=== PATIENT | male | born 1975 | race Caucasian/White ===

== ENCOUNTER 2022-10-07 11:29 | Inpatient (IN) | payer BC, OTHER ==
[~2022-10-07] VITALS: Ht 170.2 cm; Wt 107.0 kg
[2022-10-07 12:28] LABS: Basophils # (auto) 0 10 ^3/uL (0-0.2); Basophils % (auto) 0.4 % (0.0-2.0); Eosinophils # (auto) 0.1 10 ^3/uL (0-0.8); Eosinophils % (auto) 0.6 % (0.0-7.0); Hemoglobin 17.9 g/dL (13.5-17.5); Lymphocytes # (auto) 1.6 10 ^3/uL (0.4-5.4); Lymphocytes % (auto) 15.4 % (10.0-50.0); Mean Corpuscular Hemoglobin 34.5 pg (28.0-32.0); Mean Corpuscular Hgb Conc. 35.2 g/dL (32.0-36.0); Mean Corpuscular Volume 98.1 fL (80.0-100.0); Monocytes # (auto) 1.2 10 ^3/uL (0-1.3); Monocytes % (auto) 11.8 % (0.0-12.0); Neutrophils # (auto) 7.3 10 ^3/uL (1.6-8.6); Neutrophils % (auto) 71.8 % (37.0-80.0); Nucleated Red Blood Cells % 0.1 %; White Blood Cell 10.1 10^3/uL (4.4-10.8)
[2022-10-07 12:44] LABS: Albumin 3.8 g/dL (3.4-5.0); BUN/Creatinine Ratio 12.7 (10.0-20.0); Calcium 10.5 mg/dL (8.5-10.1); Potassium 3.7 mmol/L (3.5-5.1)
[2022-10-07 12:47] LABS: Total Protein 8.4 g/dL (6.4-8.2)
[2022-10-07 12:53] LABS: Urine Bacteria NONE SEEN /hpf (None Seen); Urine Blood Negative /uL (Negative); Urine Specific Gravity 1.014 (1.001-1.035); Urine WBC 1 /hpf (0 - 3)
[2022-10-07] MEDS ORDERED: HYDROcodone-ACET 5/325MG TAB PO ONE (14:15)
[2022-10-07] MEDS ORDERED: KETOROLAC TROMETH 30 MG/ML 1ML VIAL IV ONE (14:15)
[2022-10-07] MEDS ORDERED: predniSONE 20 MG TAB PO ONE (14:15)
[2022-10-07] MEDS ORDERED: LACTATED RINGER'S 1,000 ML IV ONE (16:15)
[2022-10-07] MEDS ORDERED: NITROGLYCERIN 0.4 MG SL TAB SL PRN (17:30)
[2022-10-07] MEDS ORDERED: ONDANSETRON HCL 4 MG/2 ML VIAL IV PRN (17:30)
[2022-10-07] MEDS ORDERED: MORPHINE SULFATE INJ 2 MG/ml SYRG IV PRN (17:30)
[2022-10-07 18:50] LABS: INR 1.03 (0.9-1.15); Partial Thromboplastin Time 36.3 sec (24.6-33.4)
[2022-10-07] MEDS: cefTRIAXone 1GM/50ML D5W 50 ML IV SCH (22:00)
[2022-10-07] MEDS: LACTATED RINGER'S 1,000 ML IV SCH (22:00)
[2022-10-07] MEDS: PANTOPRAZOLE 40 MG/10 ML VIAL INJ IV SCH (22:00)
[2022-10-08] MEDS: metroNIDAZOLE 500MG/100ML 100 ML IV SCH ×4 (00:12→22:34)
[2022-10-08] MEDS ORDERED: ACETAMINOPHEN 325 MG TAB PO ONE (00:45)
[2022-10-08] MEDS: LACTATED RINGER'S 1,000 ML IV SCH ×2 (01:31→09:30)
[2022-10-08] MEDS: MORPHINE SULFATE INJ 2 MG/ml SYRG IV PRN ×3 (02:55→20:19)
[2022-10-08 06:25] LABS: Basophils # (auto) 0 10 ^3/uL (0-0.2); Hemoglobin 16.9 g/dL (13.5-17.5); Monocytes # (auto) 1.3 10 ^3/uL (0-1.3)
[2022-10-08 06:28] LABS: Basophils % (auto) 0.3 % (0.0-2.0); Eosinophils # (auto) 0.1 10 ^3/uL (0-0.8); Eosinophils % (auto) 0.8 % (0.0-7.0); Hematocrit 47.5 % (41.0-53.0); Lymphocytes # (auto) 1.4 10 ^3/uL (0.4-5.4); Lymphocytes % (auto) 19.5 % (10.0-50.0); Mean Corpuscular Hemoglobin 34.6 pg (28.0-32.0); Mean Corpuscular Hgb Conc. 35.5 g/dL (32.0-36.0); Mean Corpuscular Volume 97.4 fL (80.0-100.0); Neutrophils # (auto) 4.3 10 ^3/uL (1.6-8.6); Neutrophils % (auto) 61.2 % (37.0-80.0); Nucleated Red Blood Cells % 0.1 %; Red Blood Cells 4.88 10^6/uL (4.5-5.90)
[2022-10-08 06:51] LABS: Potassium 3.8 mmol/L (3.5-5.1)
[2022-10-08 07:10] LABS: Albumin 3.5 g/dL (3.4-5.0); BUN/Creatinine Ratio 15.3 (10.0-20.0); Bilirubin, Total 0.7 mg/dL (0.2-1.0); Calcium 9.9 mg/dL (8.5-10.1); Total Protein 7.5 g/dL (6.4-8.2)
[2022-10-08 07:29] LABS: Monocytes % (auto) 18.2 % (0.0-12.0)
[2022-10-08] MEDS: PANTOPRAZOLE 40 MG/10 ML VIAL INJ IV SCH (09:49)
[2022-10-08] MEDS: cefTRIAXone 1GM/50ML D5W 50 ML IV SCH (09:49)
[2022-10-08] MEDS ORDERED: levoFLOXacin 500MG 100 ML IV SCH (10:00)
[2022-10-08] MEDS ORDERED: methylPREDNISolone SOD SUCC 40 MG/ML VL IV SCH (10:00)
[2022-10-08 11:40] VITALS: BP 117/73
[2022-10-08 12:30] VITALS: BP 117/73
[2022-10-08] MEDS ORDERED: GASTROGRAFIN 120 ML SOL ONE (15:23)
[2022-10-08 17:30] VITALS: BP 120/80
[2022-10-08 22:00] VITALS: BP 127/82
[2022-10-09 05:00] VITALS: BP 121/71
[2022-10-09 06:07] LABS: Mean Corpuscular Hemoglobin 34.3 pg (28.0-32.0); White Blood Cell 6.5 10^3/uL (4.4-10.8)
[2022-10-09 06:09] LABS: Hematocrit 47.6 % (41.0-53.0); Hemoglobin 16.6 g/dL (13.5-17.5); Mean Corpuscular Hgb Conc. 34.8 g/dL (32.0-36.0); Mean Corpuscular Volume 98.6 fL (80.0-100.0); Red Blood Cells 4.83 10^6/uL (4.5-5.90); Red Cell Distribution Width 13.2 % (11.8-14.3)
[2022-10-09] MEDS: metroNIDAZOLE 500MG/100ML 100 ML IV SCH ×3 (06:10→21:39)
[2022-10-09 06:22] LABS: Albumin 3.1 g/dL (3.4-5.0); BUN/Creatinine Ratio 16.8 (10.0-20.0); Calcium 9.3 mg/dL (8.5-10.1); Magnesium 2.3 mg/dL (1.6-2.6); Potassium 3.3 mmol/L (3.5-5.1)
[2022-10-09 06:25] LABS: Bilirubin, Total 0.4 mg/dL (0.2-1.0); Total Protein 7.5 g/dL (6.4-8.2)
[2022-10-09 06:31] LABS: Basophils % (manual) 0 (0.0-2.0); Blast Cells 0; Metamyelocytes % 0; Myelocytes % 0; Promyelocytes % 0
[2022-10-09] MEDS ORDERED: POTASSIUM CHLORIDE 40 MEQ, LIDOCAINE 1% (LOCAL ANESTH.) 4 ML in SODIUM CHL 0.9% 250 ML IV ONE (07:45)
[2022-10-09 08:51] LABS: Band Neutrophils % (manual) 2; Eosinophils % (manual) 1 (0-7); Lymphocytes % (manual) 21 (10.0-50.0); Monocytes % (manual) 16 (0-12); Reactive Lymphocytes 1
[2022-10-09 09:00] VITALS: BP 106/76
[2022-10-09] MEDS: cefTRIAXone 1GM/50ML D5W 50 ML IV SCH (09:59)
[2022-10-09] MEDS: PANTOPRAZOLE 40 MG/10 ML VIAL INJ IV SCH (10:00)
[2022-10-09 13:00] VITALS: BP 120/77
[2022-10-09 16:41] VITALS: BP 110/77
[2022-10-09 21:49] VITALS: BP 135/72
[2022-10-09 21:51] VITALS: BP 110/65
[2022-10-10 05:22] VITALS: BP 99/62
[2022-10-10] MEDS: metroNIDAZOLE 500MG/100ML 100 ML IV SCH ×2 (05:30→15:02)
[2022-10-10 08:30] VITALS: BP 115/72
[2022-10-10] MEDS: cefTRIAXone 1GM/50ML D5W 50 ML IV SCH (09:54)
[2022-10-10] MEDS: PANTOPRAZOLE 40 MG/10 ML VIAL INJ IV SCH (09:59)
[2022-10-10 13:00] VITALS: BP 113/73
[2022-10-10 13:18] LABS: Basophils # (auto) 0.1 10 ^3/uL (0-0.2); Basophils % (auto) 0.9 % (0.0-2.0); Eosinophils # (auto) 0.1 10 ^3/uL (0-0.8); Eosinophils % (auto) 0.8 % (0.0-7.0); Hemoglobin 15.2 g/dL (13.5-17.5); Lymphocytes # (auto) 1.6 10 ^3/uL (0.4-5.4); Lymphocytes % (auto) 17.2 % (10.0-50.0); Mean Corpuscular Hemoglobin 33.5 pg (28.0-32.0); Mean Corpuscular Hgb Conc. 34.5 g/dL (32.0-36.0); Mean Corpuscular Volume 97.2 fL (80.0-100.0); Monocytes # (auto) 0.9 10 ^3/uL (0-1.3); Monocytes % (auto) 9.9 % (0.0-12.0); Neutrophils # (auto) 6.5 10 ^3/uL (1.6-8.6); Neutrophils % (auto) 71.2 % (37.0-80.0); Nucleated Red Blood Cells % 0.1 %; Red Blood Cells 4.52 10^6/uL (4.5-5.90); Red Cell Distribution Width 13.2 % (11.8-14.3); White Blood Cell 9.1 10^3/uL (4.4-10.8)
[2022-10-10 13:19] LABS: Potassium 3.4 mmol/L (3.5-5.1)
[2022-10-10] MEDS ORDERED: AUG875T PO (13:22)
[2022-10-10] MEDS ORDERED: METR500T PO (13:22)
[2022-10-10 13:26] LABS: Albumin 3.1 g/dL (3.4-5.0); BUN/Creatinine Ratio 13.8 (10.0-20.0); Bilirubin, Total 0.2 mg/dL (0.2-1.0); Calcium 8.8 mg/dL (8.5-10.1); Total Protein 6.5 g/dL (6.4-8.2)
[2022-10-10] MEDS ORDERED: CHOL20007 OR (15:07)
[2022-10-10] MEDS ORDERED: POTASSIUM CHL 20 Meq TABLET PO ONE (15:15)
== END 2022-10-10 17:34 | disposition home or self-care (01) | DRG 389 ==
LOC: ER 11:29 → TELE 18:01 → TELE-WESTW 10-08 11:40
PROVIDERS: ADMIT Nurse Practitioner Family; ATTEND Internal Medicine
PROC: 0D9670Z Drainage of Stomach with Drainage Device, Via Natural or Artificial Opening (ICD-10-PCS; principal; 2022-10-07)
DX: K56.609 Unspecified intestinal obstruction, unspecified as to partial versus complete obstruction (principal); A09 Infectious gastroenteritis and colitis, unspecified; K51.90 Ulcerative colitis, unspecified, without complications; E66.9 Obesity, unspecified; E55.9 Vitamin D deficiency, unspecified; K80.20 Calculus of gallbladder without cholecystitis without obstruction; E87.6 Hypokalemia; Z80.0 Family history of malignant neoplasm of digestive organs; Z68.36 Body mass index [BMI] 36.0-36.9, adult; Z80.8 Family history of malignant neoplasm of other organs or systems; Z83.3 Family history of diabetes mellitus; Z20.822 Contact with and (suspected) exposure to COVID-19
CPT/HCPCS: 36415; 74018; 74177; 74250; 80053; 81001; 82306; 83036; 83690; 83735; 84443; 85007; 85025; 85027; 85610; 85730; 87081; 87426; 96361; 96374; C9113; G0378; J0696; J1885; J2001; J2405; J3490

== ENCOUNTER → 2022-10-17 | Outpatient (CLI) | payer BC ==
[~2022-10-17] MED LIST: AUG875T PO; CHOL20007 OR; METR500T PO
[2022-10-17 11:01] LABS: Basophils # (auto) 0.1 10 ^3/uL (0-0.2); Eosinophils # (auto) 0.2 10 ^3/uL (0-0.8); Eosinophils % (auto) 1.3 % (0.0-7.0); Hematocrit 45.5 % (41.0-53.0); Hemoglobin 15.5 g/dL (13.5-17.5); Lymphocytes # (auto) 1.8 10 ^3/uL (0.4-5.4); Lymphocytes % (auto) 15.3 % (10.0-50.0); Mean Corpuscular Hemoglobin 33.5 pg (28.0-32.0); Mean Corpuscular Hgb Conc. 34.1 g/dL (32.0-36.0); Mean Corpuscular Volume 98.2 fL (80.0-100.0); Monocytes # (auto) 0.8 10 ^3/uL (0-1.3); Monocytes % (auto) 6.9 % (0.0-12.0); Neutrophils % (auto) 75.5 % (37.0-80.0); Red Blood Cells 4.63 10^6/uL (4.5-5.90)
[2022-10-17 11:45] LABS: Albumin 3.6 g/dL (3.4-5.0); Calcium 8.7 mg/dL (8.5-10.1); Potassium 3.9 mmol/L (3.5-5.1)
[2022-10-17 11:48] LABS: Bilirubin, Total 0.2 mg/dL (0.2-1.0)
== END | disposition home or self-care (01) ==
LOC: LAB 10:42
PROVIDERS: ATTEND Internal Medicine
DX: E78.5 Hyperlipidemia, unspecified (principal); E87.5 Hyperkalemia
CPT/HCPCS: 36415; 80053; 85025

== ENCOUNTER 2022-10-21 16:16 | Inpatient (IN) | payer BC ==
[~2022-10-21] VITALS: Ht 193 cm; Wt 102.1 kg
[2022-10-21 17:35] LABS: Basophils # (auto) 0.1 10 ^3/uL (0-0.2); Basophils % (auto) 0.4 % (0.0-2.0); Eosinophils # (auto) 0 10 ^3/uL (0-0.8); Eosinophils % (auto) 0.1 % (0.0-7.0); Hematocrit 49.1 % (41.0-53.0); Lymphocytes # (auto) 0.5 10 ^3/uL (0.4-5.4); Lymphocytes % (auto) 3.1 % (10.0-50.0); Mean Corpuscular Hemoglobin 33.6 pg (28.0-32.0); Mean Corpuscular Hgb Conc. 34.7 g/dL (32.0-36.0); Mean Corpuscular Volume 96.7 fL (80.0-100.0); Monocytes # (auto) 0.8 10 ^3/uL (0-1.3); Monocytes % (auto) 4.9 % (0.0-12.0); Neutrophils # (auto) 15.7 10 ^3/uL (1.6-8.6); Neutrophils % (auto) 91.5 % (37.0-80.0); Nucleated Red Blood Cells % 0.2 %; Red Blood Cells 5.08 10^6/uL (4.5-5.90); Red Cell Distribution Width 13.5 % (11.8-14.3); White Blood Cell 17.1 10^3/uL (4.4-10.8)
[2022-10-21 18:01] LABS: Calcium 9.5 mg/dL (8.5-10.1); Potassium 4.1 mmol/L (3.5-5.1)
[2022-10-21 18:04] LABS: BUN/Creatinine Ratio 9.7 (10.0-20.0); Bilirubin, Total 1.5 mg/dL (0.2-1.0); Total Protein 7.2 g/dL (6.4-8.2)
[2022-10-21] MEDS ORDERED: ONDANSETRON HCL 4 MG/2 ML VIAL IV ONE (19:00)
[2022-10-21] MEDS ORDERED: fentaNYL CITRATE 100 MCG/2 ML VL IV ONE (19:00)
[2022-10-21] MEDS ORDERED: SODIUM CHLORIDE 0.9% 1,000 ML IV ONE (19:00)
[2022-10-21] MEDS ORDERED: PIPERACILLIN-TAZOB 3.375GM 100 ML IV ONE (19:00)
[2022-10-21 19:42] LABS: Urine Bacteria FEW /hpf (None Seen); Urine Blood Negative /uL (Negative); Urine Hyaline Cast FEW /lpf (0 - 2); Urine Mucus FEW (None Seen); Urine Specific Gravity 1.022 (1.001-1.035); Urine WBC 2 /hpf (0 - 3)
[2022-10-22] MEDS: PIPERACILLIN-TAZOB 3.375GM 100 ML IV SCH ×4 (02:05→22:46)
[2022-10-22 06:04] VITALS: BP 125/80
[2022-10-22] MEDS: SODIUM CHLORIDE 0.9% 1,000 ML IV SCH ×3 (07:17→22:46)
[2022-10-22] MEDS ORDERED: OMEP20TA PO (07:45)
[2022-10-22 08:10] LABS: Basophils # (auto) 0 10 ^3/uL (0-0.2); Basophils % (auto) 0.2 % (0.0-2.0); Eosinophils # (auto) 0 10 ^3/uL (0-0.8); Eosinophils % (auto) 0.3 % (0.0-7.0); Hematocrit 43.2 % (41.0-53.0); Hemoglobin 14.9 g/dL (13.5-17.5); Lymphocytes # (auto) 0.5 10 ^3/uL (0.4-5.4); Lymphocytes % (auto) 8.1 % (10.0-50.0); Mean Corpuscular Hemoglobin 33.7 pg (28.0-32.0); Mean Corpuscular Hgb Conc. 34.4 g/dL (32.0-36.0); Mean Corpuscular Volume 97.7 fL (80.0-100.0); Monocytes # (auto) 0.8 10 ^3/uL (0-1.3); Monocytes % (auto) 11.5 % (0.0-12.0); Neutrophils # (auto) 5.3 10 ^3/uL (1.6-8.6); Neutrophils % (auto) 79.9 % (37.0-80.0); Red Blood Cells 4.42 10^6/uL (4.5-5.90); Red Cell Distribution Width 13.1 % (11.8-14.3); White Blood Cell 6.7 10^3/uL (4.4-10.8)
[2022-10-22 08:31] LABS: Albumin 3.1 g/dL (3.4-5.0); Calcium 8.4 mg/dL (8.5-10.1); Potassium 3.4 mmol/L (3.5-5.1)
[2022-10-22 08:36] LABS: BUN/Creatinine Ratio 12.2 (10.0-20.0); Bilirubin, Total 1.1 mg/dL (0.2-1.0); Total Protein 6.7 g/dL (6.4-8.2)
[2022-10-22] MEDS ORDERED: GASTROGRAFIN 120 ML SOL ONE (08:37)
[2022-10-22 09:00] VITALS: BP 103/48
[2022-10-22] MEDS: PANTOPRAZOLE 40 MG/10 ML VIAL INJ IV SCH (10:25)
[2022-10-22] MEDS: MORPHINE SULFATE INJ 2 MG/ml SYRG IV PRN ×3 (10:30→22:45)
[2022-10-22 13:00] VITALS: BP_SYST 106; BP_SYST 134; BP_DIAS 52; BP_DIAS 87
[2022-10-22] MEDS: ONDANSETRON HCL 4 MG/2 ML VIAL IV PRN (15:38)
[2022-10-22 17:00] VITALS: BP 115/81
[2022-10-22] MEDS ORDERED: POTASSIUM CHL 20 Meq TABLET PO ONE (18:00)
[2022-10-22 22:00] VITALS: BP 102/64
[2022-10-23 05:00] VITALS: BP 117/80
[2022-10-23] MEDS: MORPHINE SULFATE INJ 2 MG/ml SYRG IV PRN (05:35)
[2022-10-23] MEDS: PIPERACILLIN-TAZOB 3.375GM 100 ML IV SCH ×3 (05:36→22:10)
[2022-10-23] MEDS: ONDANSETRON HCL 4 MG/2 ML VIAL IV PRN (05:41)
[2022-10-23 09:14] VITALS: BP 120/69
[2022-10-23] MEDS: PANTOPRAZOLE 40 MG/10 ML VIAL INJ IV SCH (09:40)
[2022-10-23] MEDS: SODIUM CHLORIDE 0.9% 1,000 ML IV SCH ×2 (10:30→14:15)
[2022-10-23] MEDS ORDERED: HYDROmorphone HCL 2 MG/ML VL/or syr IV PRN ×2 (12:15→14:15)
[2022-10-23 13:15] VITALS: BP 107/62
[2022-10-23 17:19] VITALS: BP 107/61
[2022-10-23] MEDS: HYDROmorphone HCL 2 MG/ML VL/or syr IV PRN (18:33)
[2022-10-23 20:00] VITALS: BP 133/79
[2022-10-23 22:00] VITALS: BP 133/79
[2022-10-24] MEDS: HYDROmorphone HCL 2 MG/ML VL/or syr IV PRN ×4 (00:02→19:59)
[2022-10-24] MEDS: ONDANSETRON HCL 4 MG/2 ML VIAL IV PRN ×4 (00:06→19:48)
[2022-10-24 05:00] VITALS: BP 132/80
[2022-10-24 05:50] LABS: BUN/Creatinine Ratio 9.3 (10.0-20.0); Calcium 9.2 mg/dL (8.5-10.1); Magnesium 2.3 mg/dL (1.6-2.6)
[2022-10-24] MEDS: PIPERACILLIN-TAZOB 3.375GM 100 ML IV SCH ×3 (06:27→21:57)
[2022-10-24] MEDS ORDERED: POTASSIUM CHL 20 Meq TABLET PO ONE (07:45)
[2022-10-24 09:00] VITALS: BP 124/77
[2022-10-24] MEDS: PANTOPRAZOLE 40 MG/10 ML VIAL INJ IV SCH (09:59)
[2022-10-24 13:00] VITALS: BP 128/86
[2022-10-24] MEDS: SODIUM CHLORIDE 0.9% 1,000 ML IV SCH (14:39)
[2022-10-24 20:00] VITALS: BP 135/79
[2022-10-24 21:30] VITALS: BP 135/79
[2022-10-25] VITALS (7 sets, daily range): BP systolic 112–135; BP diastolic 63–90
[2022-10-25] MEDS: ONDANSETRON HCL 4 MG/2 ML VIAL IV PRN ×5 (00:40→19:49)
[2022-10-25] MEDS: HYDROmorphone HCL 2 MG/ML VL/or syr IV PRN ×5 (00:42→19:49)
[2022-10-25] MEDS: PIPERACILLIN-TAZOB 3.375GM 100 ML IV SCH ×3 (06:45→21:46)
[2022-10-25 07:03] LABS: BUN/Creatinine Ratio 13.8 (10.0-20.0); Magnesium 2.2 mg/dL (1.6-2.6); Potassium 3.3 mmol/L (3.5-5.1)
[2022-10-25 08:19] LABS: Hematocrit 44.2 % (41.0-53.0); Hemoglobin 15.8 g/dL (13.5-17.5); Mean Corpuscular Hemoglobin 33.9 pg (28.0-32.0); Mean Corpuscular Hgb Conc. 35.7 g/dL (32.0-36.0); Mean Corpuscular Volume 94.9 fL (80.0-100.0); Red Blood Cells 4.66 10^6/uL (4.5-5.90); Red Cell Distribution Width 13.2 % (11.8-14.3); White Blood Cell 6.6 10^3/uL (4.4-10.8)
[2022-10-25 08:24] LABS: Basophils % (manual) 0 (0.0-2.0); Blast Cells 0; Metamyelocytes % 0; Promyelocytes % 0; Reactive Lymphocytes 0
[2022-10-25 08:59] LABS: Band Neutrophils % (manual) 18; Eosinophils % (manual) 2 (0-7); Lymphocytes % (manual) 5 (10.0-50.0); Monocytes % (manual) 29 (0-12); Myelocytes % 1
[2022-10-25] MEDS: PANTOPRAZOLE 40 MG/10 ML VIAL INJ IV SCH (10:44)
[2022-10-25] MEDS: SODIUM CHLORIDE 0.9% 1,000 ML IV SCH ×2 (15:36)
[2022-10-25] MEDS ORDERED: ZOLPIDEM TARTRATE 5 MG TAB PO PRN (16:15)
[2022-10-25] MEDS ORDERED: POTASSIUM CHL 20 Meq TABLET PO ONE (16:30)
[2022-10-26] VITALS (7 sets, daily range): BP systolic 110–130; BP diastolic 54–80
[2022-10-26] MEDS: SODIUM CHLORIDE 0.9% 1,000 ML IV SCH (01:00)
[2022-10-26] MEDS: ONDANSETRON HCL 4 MG/2 ML VIAL IV PRN ×5 (01:59→23:53)
[2022-10-26] MEDS: HYDROmorphone HCL 2 MG/ML VL/or syr IV PRN ×5 (02:01→23:54)
[2022-10-26] MEDS: PIPERACILLIN-TAZOB 3.375GM 100 ML IV SCH ×3 (05:57→22:00)
[2022-10-26] MEDS: PANTOPRAZOLE 40 MG/10 ML VIAL INJ IV SCH (10:20)
[2022-10-26] MEDS ORDERED: METR500T PO (13:23)
[2022-10-26] MEDS ORDERED: LEVO500T31 PO (13:23)
[2022-10-26] MEDS ORDERED: LACTCAP35 OR (13:23)
[2022-10-26] MEDS: SUCRALFATE 1 GM/10 ML ORAL SUSP PO SCH ×2 (16:04→16:49)
[2022-10-27 05:00] VITALS: BP 118/90
[2022-10-27] MEDS: PIPERACILLIN-TAZOB 3.375GM 100 ML IV SCH ×2 (05:31→14:33)
[2022-10-27] MEDS: ONDANSETRON HCL 4 MG/2 ML VIAL IV PRN ×3 (05:32→14:33)
[2022-10-27] MEDS: HYDROmorphone HCL 2 MG/ML VL/or syr IV PRN ×3 (05:33→14:34)
[2022-10-27] MEDS: SUCRALFATE 1 GM/10 ML ORAL SUSP PO SCH (06:05)
[2022-10-27 08:00] VITALS: BP 125/76
[2022-10-27 09:00] VITALS: BP 99/62
[2022-10-27] MEDS: PANTOPRAZOLE 40 MG/10 ML VIAL INJ IV SCH (09:57)
[2022-10-27 12:59] VITALS: BP 129/86
[2022-10-27 14:55] VITALS: BP 125/87
[2022-10-27 15:03] VITALS: BP 132/68
== END 2022-10-27 16:00 | disposition home or self-care (01) | DRG 390 ==
LOC: ER 16:16 → OVERFLOW 21:08 → EAST 10-22 05:53
PROVIDERS: ADMIT Nurse Practitioner; ATTEND Internal Medicine
DX: K56.699 Other intestinal obstruction unspecified as to partial versus complete obstruction (principal); D72.829 Elevated white blood cell count, unspecified; K21.9 Gastro-esophageal reflux disease without esophagitis; K52.9 Noninfective gastroenteritis and colitis, unspecified; Z80.0 Family history of malignant neoplasm of digestive organs; Z80.8 Family history of malignant neoplasm of other organs or systems; Z83.3 Family history of diabetes mellitus
CPT/HCPCS: 36415; 74018; 74176; 74250; 80048; 80053; 81001; 83605; 83690; 83735; 84484; 85007; 85025; 85027; 87040; 87045; 87427; 87493; 96361; 96374; C9113; G0378; J2405; J2543

== ENCOUNTER 2022-11-23 13:21 | Inpatient (IN) | payer BC ==
[~2022-11-23] VITALS: Ht 195.6 cm; Wt 90.1 kg
[~2022-11-23 13:21] MED LIST changes: -AUG875T PO; -CHOL20007 OR; -METR500T PO; +OMEP20TA PO
[2022-11-23 14:00] LABS: Basophils # (auto) 0 10 ^3/uL (0-0.2); Basophils % (auto) 0.2 % (0.0-2.0); Eosinophils # (auto) 0 10 ^3/uL (0-0.8); Eosinophils % (auto) 0.4 % (0.0-7.0); Hematocrit 47.9 % (41.0-53.0); Hemoglobin 16.4 g/dL (13.5-17.5); Lymphocytes # (auto) 1.8 10 ^3/uL (0.4-5.4); Lymphocytes % (auto) 19.7 % (10.0-50.0); Mean Corpuscular Hemoglobin 32.3 pg (28.0-32.0); Mean Corpuscular Hgb Conc. 34.2 g/dL (32.0-36.0); Mean Corpuscular Volume 94.6 fL (80.0-100.0); Monocytes % (auto) 10.7 % (0.0-12.0); Neutrophils # (auto) 6.4 10 ^3/uL (1.6-8.6); Nucleated Red Blood Cells % 0.1 %; Red Blood Cells 5.07 10^6/uL (4.5-5.90); White Blood Cell 9.3 10^3/uL (4.4-10.8)
[2022-11-23] MEDS ORDERED: MAALOX PLUS or MAALOX 30 ML PO ONE (14:00)
[2022-11-23] MEDS ORDERED: DONNATAL 5ml ORAL Elix (BELLADONNA ALK-PHENOBARB) PO ONE (14:00)
[2022-11-23] MEDS ORDERED: LIDOCAINE VISCOUS 2% 15ML UD PO ONE (14:00)
[2022-11-23] MEDS ORDERED: cefTRIAXone 1GM/50ML D5W 50 ML IV ONE (14:30)
[2022-11-23] MEDS ORDERED: metroNIDAZOLE 500MG/100ML 100 ML IV ONE (14:30)
[2022-11-23 14:42] LABS: Calcium 8.5 mg/dL (8.5-10.1); Potassium 3.5 mmol/L (3.5-5.1)
[2022-11-23 14:47] LABS: BUN/Creatinine Ratio 14.6 (10.0-20.0); Bilirubin, Total 0.7 mg/dL (0.2-1.0); Total Protein 6.8 g/dL (6.4-8.2)
[2022-11-23] MEDS ORDERED: ONDANSETRON HCL 4 MG/2 ML VIAL IV PRN (15:15)
[2022-11-23] MEDS: metroNIDAZOLE 500MG/100ML 100 ML IV SCH ×2 (15:15→23:17)
[2022-11-23] MEDS ORDERED: HYDROcodone-ACET 5/325MG TAB PO PRN (15:15)
[2022-11-23] MEDS ORDERED: ACETAMINOPHEN 325 MG TAB PO PRN (15:15)
[2022-11-23] MEDS ORDERED: HYDROmorphone HCL 2 MG/ML VL/or syr IV PRN (15:15)
[2022-11-23] MEDS ORDERED: HYDROcodone-ACET 10/325MG TAB PO ONE (16:30)
[2022-11-23] MEDS: MESALAMINE 400mg Delayed Release Cap PO SCH (22:00)
[2022-11-23] MEDS: SODIUM CHLOR 0.9% PF (SALINE LOCK) 10ML VIAL/SYR IV SCH (22:11)
[2022-11-23] MEDS: DexAMETHasone SOD PHOS 10MG/1ML VIAL INJ IV SCH (22:42)
[2022-11-24] MEDS: MESALAMINE 400mg Delayed Release Cap PO SCH ×3 (05:49→21:32)
[2022-11-24] MEDS: SODIUM CHLOR 0.9% PF (SALINE LOCK) 10ML VIAL/SYR IV SCH ×3 (05:53→21:34)
[2022-11-24 06:34] LABS: Basophils # (auto) 0 10 ^3/uL (0-0.2); Basophils % (auto) 0.1 % (0.0-2.0); Eosinophils # (auto) 0 10 ^3/uL (0-0.8); Eosinophils % (auto) 0.2 % (0.0-7.0); Hematocrit 40.3 % (41.0-53.0); Lymphocytes # (auto) 0.6 10 ^3/uL (0.4-5.4); Lymphocytes % (auto) 16.2 % (10.0-50.0); Mean Corpuscular Hemoglobin 32.8 pg (28.0-32.0); Mean Corpuscular Hgb Conc. 34.7 g/dL (32.0-36.0); Mean Corpuscular Volume 94.5 fL (80.0-100.0); Monocytes # (auto) 0.1 10 ^3/uL (0-1.3); Monocytes % (auto) 2.1 % (0.0-12.0); Neutrophils # (auto) 2.8 10 ^3/uL (1.6-8.6); Neutrophils % (auto) 81.4 % (37.0-80.0); Nucleated Red Blood Cells % 0.1 %; Red Blood Cells 4.27 10^6/uL (4.5-5.90); Red Cell Distribution Width 13.7 % (11.8-14.3); White Blood Cell 3.5 10^3/uL (4.4-10.8)
[2022-11-24 06:54] LABS: Potassium 4.1 mmol/L (3.5-5.1)
[2022-11-24 07:08] LABS: Albumin 2.5 g/dL (3.4-5.0); BUN/Creatinine Ratio 18.3 (10.0-20.0); Bilirubin, Total 0.4 mg/dL (0.2-1.0); CRP High Sensitivity 7.4 mg/dL (< 0.3); Total Protein 5.5 g/dL (6.4-8.2)
[2022-11-24] MEDS: metroNIDAZOLE 500MG/100ML 100 ML IV SCH ×3 (08:44→22:31)
[2022-11-24] MEDS: DexAMETHasone SOD PHOS 10MG/1ML VIAL INJ IV SCH ×2 (09:51→21:31)
[2022-11-24] MEDS: cefTRIAXone 1GM/50ML D5W 50 ML IV SCH (09:52)
[2022-11-24] MEDS: ENOXAPARIN SOD 40 MG/0.4 ML SYRINGE SC SCH (09:52)
[2022-11-24 12:08] VITALS: BP 110/75
[2022-11-24 13:00] VITALS: BP 110/75
[2022-11-24] MEDS ORDERED: HYDR-4798 PO (13:02)
[2022-11-24 17:02] VITALS: BP 105/70
[2022-11-24 22:00] VITALS: BP 104/74
[2022-11-25 05:00] VITALS: BP 92/53
[2022-11-25] MEDS: metroNIDAZOLE 500MG/100ML 100 ML IV SCH ×2 (06:04→15:15)
[2022-11-25] MEDS: MESALAMINE 400mg Delayed Release Cap PO SCH ×3 (06:09→18:20)
[2022-11-25] MEDS: SODIUM CHLOR 0.9% PF (SALINE LOCK) 10ML VIAL/SYR IV SCH ×2 (06:09→14:00)
[2022-11-25 08:36] VITALS: BP 99/62
[2022-11-25] MEDS: DexAMETHasone SOD PHOS 10MG/1ML VIAL INJ IV SCH (11:14)
[2022-11-25] MEDS: cefTRIAXone 1GM/50ML D5W 50 ML IV SCH (11:14)
[2022-11-25] MEDS: ENOXAPARIN SOD 40 MG/0.4 ML SYRINGE SC SCH (11:15)
[2022-11-25 12:47] VITALS: BP 107/71
[2022-11-25 17:00] VITALS: BP 116/75
[2022-11-25] MEDS ORDERED: METH4PAK PO (17:19)
[2022-11-25] MEDS ORDERED: MESA400C PO (17:19)
[2022-11-25 18:45] VITALS: BP 102/64
== END 2022-11-25 19:20 | disposition home or self-care (01) | DRG 445 ==
LOC: ER 13:21 → OVERFLOW 15:08 → CENTRAL 11-24 12:57
PROVIDERS: ADMIT Internal Medicine; ATTEND Internal Medicine
DX: K80.20 Calculus of gallbladder without cholecystitis without obstruction (principal); K56.7 Ileus, unspecified; K58.9 Irritable bowel syndrome, unspecified; K76.0 Fatty (change of) liver, not elsewhere classified; K21.9 Gastro-esophageal reflux disease without esophagitis; F10.10 Alcohol abuse, uncomplicated; Y90.9 Presence of alcohol in blood, level not specified; Z83.3 Family history of diabetes mellitus; Z80.0 Family history of malignant neoplasm of digestive organs; Z80.8 Family history of malignant neoplasm of other organs or systems
CPT/HCPCS: 36415; 74018; 74176; 76705; 80053; 83605; 83690; 85025; 85652; 86141; 87040; 87081; 96365; 96368; 96372; 96375; G0378; J0696; J1100; J2405; J3490

== ENCOUNTER 2022-12-08 08:29 | Inpatient (IN) | payer BC ==
[~2022-12-08] VITALS: Ht 195.6 cm; Wt 86.6 kg
[~2022-12-08 08:29] MED LIST changes: +HYDR-4798 PO; +MESA400C PO; +METH4PAK PO
[2022-12-08] MEDS ORDERED: PANTOPRAZOLE 40 MG/10 ML VIAL INJ IV ONE (09:00)
[2022-12-08] MEDS ORDERED: MORPHINE SULFATE 4 MG/ML SYR/VIAL IV ONE (09:00)
[2022-12-08] MEDS ORDERED: PROCHLORPERAZINE EDISYLATE 5 MG/ML 2ML VIAL IV ONE (09:00)
[2022-12-08] MEDS ORDERED: SODIUM CHLORIDE 0.9% 500 ML IVB ONE (09:00)
[2022-12-08 09:37] LABS: Basophils # (auto) 0.2 10 ^3/uL (0-0.2); Basophils % (auto) 1.1 % (0.0-2.0); Eosinophils # (auto) 0 10 ^3/uL (0-0.8); Eosinophils % (auto) 0.2 % (0.0-7.0); Hematocrit 50.8 % (41.0-53.0); Hemoglobin 17.1 g/dL (13.5-17.5); Lymphocytes % (auto) 12.2 % (10.0-50.0); Mean Corpuscular Hemoglobin 31.6 pg (28.0-32.0); Mean Corpuscular Hgb Conc. 33.6 g/dL (32.0-36.0); Mean Corpuscular Volume 93.9 fL (80.0-100.0); Monocytes # (auto) 1.3 10 ^3/uL (0-1.3); Monocytes % (auto) 8.2 % (0.0-12.0); Neutrophils # (auto) 12.8 10 ^3/uL (1.6-8.6); Neutrophils % (auto) 78.3 % (37.0-80.0); Nucleated Red Blood Cells % 0.1 %; Red Blood Cells 5.41 10^6/uL (4.5-5.90); Red Cell Distribution Width 14.6 % (11.8-14.3); White Blood Cell 16.4 10^3/uL (4.4-10.8)
[2022-12-08 09:48] LABS: Albumin 3.6 g/dL (3.4-5.0); Calcium 9.3 mg/dL (8.5-10.1)
[2022-12-08 09:55] LABS: Potassium 2.9 mmol/L (3.5-5.1)
[2022-12-08 10:07] LABS: BUN/Creatinine Ratio 21.4 (10.0-20.0); Total Protein 7.7 g/dL (6.4-8.2)
[2022-12-08] MEDS ORDERED: POTASSIUM CHL 20MEQ/100ML 100 ML IV ONE (10:30)
[2022-12-08 10:48] LABS: Urine Bacteria NONE SEEN /hpf (None Seen); Urine Blood 2+ /uL (Negative); Urine Hyaline Cast MOD /lpf (0 - 2); Urine Mucus FEW (None Seen); Urine Specific Gravity 1.026 (1.001-1.035); Urine WBC 1147 /hpf (0 - 3); Urine WBC Clumps PRESENT /hpf (None Seen)
[2022-12-08] MEDS ORDERED: NITROGLYCERIN 0.4 MG SL TAB SL PRN (13:30)
[2022-12-08] MEDS: ONDANSETRON HCL 4 MG/2 ML VIAL IV PRN ×2 (15:24→20:58)
[2022-12-08] MEDS: metroNIDAZOLE 500MG/100ML 100 ML IV SCH ×2 (15:26→22:57)
[2022-12-08] MEDS: MORPHINE SULFATE INJ 2 MG/ml SYRG IV PRN ×3 (15:26→20:59)
[2022-12-08 16:30] LABS: Potassium 3.2 mmol/L (3.5-5.1)
[2022-12-08 16:38] LABS: INR 1.04 (0.9-1.15); Partial Thromboplastin Time 30.5 SEC (24.5-34.5)
[2022-12-08 16:39] LABS: CRP High Sensitivity 2.34 mg/dL (< 0.3)
[2022-12-08] MEDS: SODIUM CHLORIDE 0.9% 1,000 ML IV SCH ×2 (16:56→20:58)
[2022-12-08] MEDS: MESALAMINE 400mg Delayed Release Cap PO SCH ×2 (16:56→22:54)
[2022-12-08] MEDS: PIPERACILLIN-TAZOB 3.375GM 100 ML IV SCH ×2 (16:56→23:00)
[2022-12-08 19:49] LABS: Alcohol, Urine < 3.0 mg/dL (0-10); Amphetamine Screen, Urine NEGATIVE (NEGATIVE); Barbiturate Scree,Urine NEGATIVE (NEGATIVE); Benzodiazephine Screen, Urine NEGATIVE (NEGATIVE); Cannabinoid Screen, Urine POSITIVE (NEGATIVE); Cocaine Screen, Urine NEGATIVE (NEGATIVE); Phencyclidine Screen, Urine NEGATIVE (NEGATIVE)
[2022-12-08 19:56] LABS: Opiate Scree,Urine NEGATIVE (NEGATIVE)
[2022-12-08] MEDS: methylPREDNISolone SOD SUCC 40 MG/ML VL IV SCH (23:00)
[2022-12-09] MEDS: MORPHINE SULFATE INJ 2 MG/ml SYRG IV PRN ×5 (02:05→21:11)
[2022-12-09] MEDS: ONDANSETRON HCL 4 MG/2 ML VIAL IV PRN ×3 (02:22→16:44)
[2022-12-09] MEDS: SODIUM CHLORIDE 0.9% 1,000 ML IV SCH ×4 (02:50→23:27)
[2022-12-09] MEDS: MESALAMINE 400mg Delayed Release Cap PO SCH ×3 (06:04→21:32)
[2022-12-09] MEDS: metroNIDAZOLE 500MG/100ML 100 ML IV SCH ×3 (06:06→23:27)
[2022-12-09 06:43] LABS: Potassium 3.7 mmol/L (3.5-5.1)
[2022-12-09 06:52] LABS: Albumin 3.1 g/dL (3.4-5.0); BUN/Creatinine Ratio 17.8 (10.0-20.0); Calcium 8.6 mg/dL (8.5-10.1); Total Protein 6.6 g/dL (6.4-8.2)
[2022-12-09 06:58] LABS: Basophils # (auto) 0 10 ^3/uL (0-0.2); Basophils % (auto) 0.1 % (0.0-2.0); Eosinophils # (auto) 0 10 ^3/uL (0-0.8); Hemoglobin 14.5 g/dL (13.5-17.5); Lymphocytes # (auto) 0.7 10 ^3/uL (0.4-5.4); Lymphocytes % (auto) 12.2 % (10.0-50.0); Mean Corpuscular Hemoglobin 32.1 pg (28.0-32.0); Mean Corpuscular Hgb Conc. 33.6 g/dL (32.0-36.0); Mean Corpuscular Volume 95.6 fL (80.0-100.0); Monocytes # (auto) 0.3 10 ^3/uL (0-1.3); Monocytes % (auto) 4.4 % (0.0-12.0); Neutrophils # (auto) 4.8 10 ^3/uL (1.6-8.6); Neutrophils % (auto) 83.3 % (37.0-80.0); Red Cell Distribution Width 15.2 % (11.8-14.3); White Blood Cell 5.8 10^3/uL (4.4-10.8)
[2022-12-09] MEDS: PIPERACILLIN-TAZOB 3.375GM 100 ML IV SCH (07:48)
[2022-12-09] MEDS: methylPREDNISolone SOD SUCC 40 MG/ML VL IV SCH ×2 (10:02→21:32)
[2022-12-09] MEDS: FOLIC ACID 1 MG TAB PO SCH (10:02)
[2022-12-09] MEDS: PANTOPRAZOLE 40 MG/10 ML VIAL INJ IV SCH (10:02)
[2022-12-09] MEDS: MULTIPLE VITAMIN TAB PO SCH (10:02)
[2022-12-09] MEDS ORDERED: CIPROFLOXACIN 400MG/200ML 200 ML IV ONE (11:30)
[2022-12-09] MEDS ORDERED: GASTROGRAFIN 120 ML SOL ONE (13:31)
[2022-12-09] MEDS: CIPROFLOXACIN 400MG/200ML 200 ML IV SCH (21:32)
[2022-12-09 22:43] VITALS: BP 109/74
[2022-12-10] MEDS: MORPHINE SULFATE INJ 2 MG/ml SYRG IV PRN ×3 (02:40→20:25)
[2022-12-10 06:14] LABS: Basophils # (auto) 0 10 ^3/uL (0-0.2); Basophils % (auto) 0.2 % (0.0-2.0); Eosinophils # (auto) 0.1 10 ^3/uL (0-0.8); Eosinophils % (auto) 1.3 % (0.0-7.0); Hematocrit 34.4 % (41.0-53.0); Hemoglobin 11.8 g/dL (13.5-17.5); Lymphocytes # (auto) 1.3 10 ^3/uL (0.4-5.4); Lymphocytes % (auto) 22.5 % (10.0-50.0); Mean Corpuscular Hgb Conc. 34.1 g/dL (32.0-36.0); Mean Corpuscular Volume 93.8 fL (80.0-100.0); Monocytes # (auto) 0.9 10 ^3/uL (0-1.3); Monocytes % (auto) 14.9 % (0.0-12.0); Neutrophils # (auto) 3.6 10 ^3/uL (1.6-8.6); Neutrophils % (auto) 61.1 % (37.0-80.0); Nucleated Red Blood Cells % 0.1 %; Red Blood Cells 3.67 10^6/uL (4.5-5.90); Red Cell Distribution Width 14.9 % (11.8-14.3); White Blood Cell 5.9 10^3/uL (4.4-10.8)
[2022-12-10] MEDS: metroNIDAZOLE 500MG/100ML 100 ML IV SCH ×3 (06:24→21:22)
[2022-12-10] MEDS: SODIUM CHLORIDE 0.9% 1,000 ML IV SCH ×2 (06:24→12:07)
[2022-12-10] MEDS: MESALAMINE 400mg Delayed Release Cap PO SCH ×3 (06:24→21:22)
[2022-12-10 06:40] LABS: Calcium 8.3 mg/dL (8.5-10.1); Potassium 3.2 mmol/L (3.5-5.1)
[2022-12-10 06:44] LABS: BUN/Creatinine Ratio 16.5 (10.0-20.0)
[2022-12-10 08:00] VITALS: BP 100/59
[2022-12-10 09:00] VITALS: BP 100/59
[2022-12-10] MEDS: FOLIC ACID 1 MG TAB PO SCH (09:15)
[2022-12-10] MEDS: MULTIPLE VITAMIN TAB PO SCH (09:15)
[2022-12-10] MEDS: methylPREDNISolone SOD SUCC 40 MG/ML VL IV SCH ×2 (09:15→21:22)
[2022-12-10] MEDS: PANTOPRAZOLE 40 MG/10 ML VIAL INJ IV SCH (09:15)
[2022-12-10] MEDS: CIPROFLOXACIN 400MG/200ML 200 ML IV SCH ×2 (09:16→21:22)
[2022-12-10 13:00] VITALS: BP 99/63
[2022-12-10] MEDS ORDERED: MAGNESIUM OXIDE 400 MG TAB PO ONE (14:30)
[2022-12-10] MEDS ORDERED: POTASSIUM CHL 20 Meq TABLET PO ONE (14:30)
[2022-12-10 16:30] VITALS: BP 107/69
[2022-12-10 20:00] VITALS: BP 118/73
[2022-12-10 22:00] VITALS: BP 118/73
[2022-12-11] VITALS (7 sets, daily range): BP systolic 108–123; BP diastolic 64–81
[2022-12-11] MEDS: MORPHINE SULFATE INJ 2 MG/ml SYRG IV PRN ×4 (01:33→21:58)
[2022-12-11] MEDS: metroNIDAZOLE 500MG/100ML 100 ML IV SCH ×3 (06:07→22:05)
[2022-12-11] MEDS: MESALAMINE 400mg Delayed Release Cap PO SCH ×3 (06:07→22:03)
[2022-12-11 06:22] LABS: Basophils # (auto) 0 10 ^3/uL (0-0.2); Basophils % (auto) 0.1 % (0.0-2.0); Eosinophils # (auto) 0 10 ^3/uL (0-0.8); Hematocrit 37.7 % (41.0-53.0); Hemoglobin 12.7 g/dL (13.5-17.5); Lymphocytes # (auto) 0.6 10 ^3/uL (0.4-5.4); Lymphocytes % (auto) 13.5 % (10.0-50.0); Mean Corpuscular Hemoglobin 31.7 pg (28.0-32.0); Mean Corpuscular Hgb Conc. 33.7 g/dL (32.0-36.0); Mean Corpuscular Volume 94.1 fL (80.0-100.0); Monocytes # (auto) 0.3 10 ^3/uL (0-1.3); Monocytes % (auto) 7.3 % (0.0-12.0); Neutrophils # (auto) 3.3 10 ^3/uL (1.6-8.6); Neutrophils % (auto) 79.1 % (37.0-80.0); Nucleated Red Blood Cells % 0.1 %; Red Blood Cells 4.01 10^6/uL (4.5-5.90); Red Cell Distribution Width 14.7 % (11.8-14.3); White Blood Cell 4.1 10^3/uL (4.4-10.8)
[2022-12-11 06:32] LABS: BUN/Creatinine Ratio 10.1 (10.0-20.0); Calcium 8.2 mg/dL (8.5-10.1); Magnesium 2.2 mg/dL (1.6-2.6); Potassium 3.8 mmol/L (3.5-5.1)
[2022-12-11] MEDS: CIPROFLOXACIN 400MG/200ML 200 ML IV SCH ×2 (09:18→22:05)
[2022-12-11] MEDS: methylPREDNISolone SOD SUCC 40 MG/ML VL IV SCH ×2 (09:19→22:03)
[2022-12-11] MEDS: POLYETHYLENE GLYCOL 17 GM PWDR PO SCH (09:19)
[2022-12-11] MEDS: FOLIC ACID 1 MG TAB PO SCH (09:19)
[2022-12-11] MEDS: MULTIPLE VITAMIN TAB PO SCH (09:20)
[2022-12-11] MEDS: PANTOPRAZOLE 40 MG/10 ML VIAL INJ IV SCH (09:21)
[2022-12-11] MEDS: ONDANSETRON HCL 4 MG/2 ML VIAL IV PRN ×2 (11:05→21:57)
[2022-12-11] MEDS ORDERED: GOLYTELY 4L KIT PO ONE ×2 (16:15→23:00)
[2022-12-11] MEDS ORDERED: MORPHINE SULFATE INJ 2 MG/ml SYRG ONE (21:53)
[2022-12-11] MEDS ORDERED: ONDANSETRON HCL 4 MG/2 ML VIAL ONE (21:53)
[2022-12-12] VITALS (7 sets, daily range): BP systolic 100–121; BP diastolic 62–75
[2022-12-12] MEDS: metroNIDAZOLE 500MG/100ML 100 ML IV SCH ×3 (05:16→22:02)
[2022-12-12] MEDS: MESALAMINE 400mg Delayed Release Cap PO SCH ×3 (05:16→22:01)
[2022-12-12] MEDS: ONDANSETRON HCL 4 MG/2 ML VIAL IV PRN (05:32)
[2022-12-12] MEDS: MORPHINE SULFATE INJ 2 MG/ml SYRG IV PRN ×2 (05:33→05:41)
[2022-12-12] MEDS ORDERED: GOLYTELY 4L KIT PO ONE (06:00)
[2022-12-12 06:52] LABS: Chloride 109 mmol/L (98-107); Potassium 3.9 mmol/L (3.5-5.1); Sodium 140 mmol/L (136-145)
[2022-12-12 07:53] LABS: Anion Gap 6 (5-15); Blood Urea Nitrogen 4 mg/dL (7-18); Calcium 8.1 mg/dL (8.5-10.1); Carbon Dioxide 25 mmol/L (21-32); GFR African American 165 mL/min; GFR Non-African American 136 mL/min; Glucose 115 mg/dL (74-106); Magnesium 2.2 mg/dL (1.6-2.6)
[2022-12-12] MEDS: methylPREDNISolone SOD SUCC 40 MG/ML VL IV SCH ×2 (08:54→22:01)
[2022-12-12] MEDS: FOLIC ACID 1 MG TAB PO SCH (08:55)
[2022-12-12] MEDS: CIPROFLOXACIN 400MG/200ML 200 ML IV SCH ×2 (08:55→23:17)
[2022-12-12] MEDS: PANTOPRAZOLE 40 MG/10 ML VIAL INJ IV SCH (08:55)
[2022-12-12] MEDS: MULTIPLE VITAMIN TAB PO SCH (08:55)
[2022-12-12] MEDS: POLYETHYLENE GLYCOL 17 GM PWDR PO SCH (08:55)
[2022-12-12] MEDS ORDERED: MIDAZOLAM HCL 2MG/2ML 2ml VIAL (1mg/ml) ONE (15:06)
[2022-12-12] MEDS ORDERED: fentaNYL CITRATE 100 MCG/2 ML VL ONE (15:06)
[2022-12-12] MEDS ORDERED: PROPOFOL 10 MG/ML 20 ML IV ONE ×2 (15:34→15:49)
[2022-12-12] MEDS ORDERED: LIDOCAINE 2% (LOCAL ANESTH.) PF 5ml SDV ONE (15:34)
[2022-12-12] MEDS ORDERED: ONDANSETRON HCL 4 MG/2 ML VIAL ONE (15:34)
[2022-12-12] MEDS ORDERED: ONDANSETRON HCL 4 MG/2 ML VIAL IV PRN (16:00)
[2022-12-12] MEDS ORDERED: HYDROmorphone HCL 2 MG/ML VL/or syr IV PRN (16:00)
[2022-12-12] MEDS ORDERED: HYDROcodone-ACET 5/325MG TAB PO ONE (17:15)
[2022-12-13] VITALS (7 sets, daily range): BP systolic 96–113; BP diastolic 68–74
[2022-12-13] MEDS: metroNIDAZOLE 500MG/100ML 100 ML IV SCH ×3 (05:13→21:40)
[2022-12-13] MEDS: MESALAMINE 400mg Delayed Release Cap PO SCH ×3 (05:13→21:36)
[2022-12-13 06:20] LABS: Basophils # (auto) 0 10 ^3/uL (0-0.2); Basophils % (auto) 0.1 % (0.0-2.0); Eosinophils # (auto) 0 10 ^3/uL (0-0.8); Eosinophils % (auto) 0.1 % (0.0-7.0); Hematocrit 36.7 % (41.0-53.0); Hemoglobin 12.6 g/dL (13.5-17.5); Lymphocytes # (auto) 0.8 10 ^3/uL (0.4-5.4); Lymphocytes % (auto) 10.9 % (10.0-50.0); Mean Corpuscular Hemoglobin 32.1 pg (28.0-32.0); Mean Corpuscular Hgb Conc. 34.3 g/dL (32.0-36.0); Mean Corpuscular Volume 93.6 fL (80.0-100.0); Monocytes # (auto) 0.3 10 ^3/uL (0-1.3); Monocytes % (auto) 4.7 % (0.0-12.0); Neutrophils # (auto) 5.8 10 ^3/uL (1.6-8.6); Neutrophils % (auto) 84.2 % (37.0-80.0); Nucleated Red Blood Cells % 0.1 %; Red Blood Cells 3.92 10^6/uL (4.5-5.90); Red Cell Distribution Width 14.9 % (11.8-14.3); White Blood Cell 6.9 10^3/uL (4.4-10.8)
[2022-12-13 06:55] LABS: Calcium 8.3 mg/dL (8.5-10.1); Potassium 3.9 mmol/L (3.5-5.1)
[2022-12-13 06:57] LABS: BUN/Creatinine Ratio 8.2 (10.0-20.0)
[2022-12-13] MEDS: PANTOPRAZOLE 40 MG/10 ML VIAL INJ IV SCH (09:39)
[2022-12-13] MEDS: methylPREDNISolone SOD SUCC 40 MG/ML VL IV SCH (09:39)
[2022-12-13] MEDS: FOLIC ACID 1 MG TAB PO SCH (09:39)
[2022-12-13] MEDS: MULTIPLE VITAMIN TAB PO SCH (09:39)
[2022-12-13] MEDS: CIPROFLOXACIN 400MG/200ML 200 ML IV SCH ×2 (09:40→22:40)
[2022-12-13] MEDS: POLYETHYLENE GLYCOL 17 GM PWDR PO SCH (09:40)
[2022-12-14 05:00] VITALS: BP 108/76
[2022-12-14] MEDS: MESALAMINE 400mg Delayed Release Cap PO SCH (05:38)
[2022-12-14] MEDS: metroNIDAZOLE 500MG/100ML 100 ML IV SCH (05:45)
[2022-12-14 08:00] VITALS: BP 109/68
[2022-12-14] MEDS ORDERED: CIPR500T4 PO (08:42)
[2022-12-14] MEDS ORDERED: METH4PAK PO (08:42)
[2022-12-14] MEDS ORDERED: MESA400C PO (08:42)
[2022-12-14 08:50] VITALS: BP 109/68
[2022-12-14 08:51] VITALS: BP 109/68
[2022-12-14] MEDS ORDERED: methylPREDNISolone SOD SUCC 40 MG/ML VL IV SCH (10:00)
== END 2022-12-14 09:20 | disposition home or self-care (01) | DRG 386 ==
LOC: ER 08:29 → TELE 13:57 → TELE-WESTW 12-09 22:30
PROVIDERS: ADMIT Internal Medicine; ATTEND Internal Medicine
PROC: 0DBG8ZX Excision of Left Large Intestine, Via Natural or Artificial Opening Endoscopic, Diagnostic (ICD-10-PCS; 2022-12-12)
PROC: 0DBB8ZX Excision of Ileum, Via Natural or Artificial Opening Endoscopic, Diagnostic (ICD-10-PCS; principal; 2022-12-12 15:12)
DX: K50.90 Crohn's disease, unspecified, without complications (principal); K56.609 Unspecified intestinal obstruction, unspecified as to partial versus complete obstruction; N30.00 Acute cystitis without hematuria; Q43.8 Other specified congenital malformations of intestine; K80.20 Calculus of gallbladder without cholecystitis without obstruction; K76.0 Fatty (change of) liver, not elsewhere classified; K64.8 Other hemorrhoids; K52.9 Noninfective gastroenteritis and colitis, unspecified; E87.6 Hypokalemia; F12.10 Cannabis abuse, uncomplicated; K21.9 Gastro-esophageal reflux disease without esophagitis; Z91.199 Patient's noncompliance with other medical treatment and regimen due to unspecified reason; Z83.3 Family history of diabetes mellitus; Z82.0 Family history of epilepsy and other diseases of the nervous system; Z80.8 Family history of malignant neoplasm of other organs or systems; Z80.0 Family history of malignant neoplasm of digestive organs
CPT/HCPCS: 36415; 74018; 74176; 74250; 80048; 80053; 80307; 81001; 82270; 83690; 83735; 84132; 85025; 85048; 85610; 85730; 86141; 86850; 86900; 86901; 87081; 87086; 87088; 87177; 87186; 87493; 96361; 96374; 96375; C9113; G0378; J2001; J2250; J2405; J2543; J2704; J3480; J3490

== ENCOUNTER 2023-01-20 12:08 | Inpatient (IN) | payer BC ==
[~2023-01-20] VITALS: Ht 195.6 cm; Wt 77.5 kg
[~2023-01-20 12:08] MED LIST changes: +CIPR500T4 PO
[2023-01-20 13:48] LABS: Basophils # (auto) 0 10 ^3/uL (0-0.2); Basophils % (auto) 0.6 % (0.0-2.0); Eosinophils # (auto) 0 10 ^3/uL (0-0.8); Eosinophils % (auto) 0.1 % (0.0-7.0); Hematocrit 46.4 % (41.0-53.0); Hemoglobin 15.7 g/dL (13.5-17.5); Lymphocytes # (auto) 1.7 10 ^3/uL (0.4-5.4); Mean Corpuscular Hemoglobin 31.4 pg (28.0-32.0); Mean Corpuscular Hgb Conc. 33.7 g/dL (32.0-36.0); Monocytes # (auto) 0.9 10 ^3/uL (0-1.3); Neutrophils # (auto) 5.7 10 ^3/uL (1.6-8.6); Neutrophils % (auto) 68.3 % (37.0-80.0); Nucleated Red Blood Cells % 0.1 %; Red Blood Cells 4.99 10^6/uL (4.5-5.90); Red Cell Distribution Width 16.7 % (11.8-14.3); White Blood Cell 8.4 10^3/uL (4.4-10.8)
[2023-01-20] MEDS ORDERED: PIPERACILLIN-TAZOB 3.375GM 100 ML IV ONE (14:30)
[2023-01-20 15:29] LABS: Alanine Aminotransferase 27 U/L (7-40); Albumin 3.3 g/dL (3.2-4.8); Alkaline Phosphatase 136 U/L (46-116); Anion Gap 9.7 (5-15); Aspartate Aminotransferase 26 U/L (13-40); Bilirubin, Total 0.7 mg/dL (0.2-1.0); Blood Urea Nitrogen 20 mg/dL (9-23); Calcium 8.6 mg/dL (8.5-10.1); Carbon Dioxide 26.3 mmol/L (20-30); Chloride 94 mmol/L (98-107); Glucose 108 mg/dL (74-106); Lipase 27 U/L (12-53); Potassium 3.8 mmol/L (3.5-5.1); Sodium 130 mmol/L (136-145)
[2023-01-20 15:30] LABS: Total Protein 5.8 g/dL (5.7-8.2)
[2023-01-20] MEDS ORDERED: NITROGLYCERIN 0.4 MG SL TAB SL PRN (21:15)
[2023-01-20 21:23] LABS: Urine Bacteria NONE SEEN /hpf (None Seen); Urine Blood 2+ /uL (Negative); Urine Clarity CLOUDY (Clear); Urine Color Yellow (Yellow); Urine Hyaline Cast MOD /lpf (0 - 2); Urine Mucus FEW (None Seen); Urine Protein, UAD 2+ (Negative); Urine Specific Gravity 1.025 (1.001-1.035); Urine WBC 1624 /hpf (0 - 3); Urine WBC Clumps PRESENT /hpf (None Seen)
[2023-01-20] MEDS ORDERED: MORPHINE SULFATE INJ 2 MG/ml SYRG IV ONE (21:30)
[2023-01-20] MEDS ORDERED: traMADol HCL 50 MG TAB PO PRN (21:30)
[2023-01-20] MEDS ORDERED: HYDROcodone-ACET 7.5/325MG TAB PO PRN (21:30)
[2023-01-20] MEDS: ONDANSETRON HCL 4 MG/2 ML VIAL IV PRN (23:55)
[2023-01-20] MEDS: methylPREDNISolone SOD SUCC 40 MG/ML VL IV SCH (23:56)
[2023-01-20] MEDS: SODIUM CHLORIDE 0.9% 1,000 ML IV SCH (23:56)
[2023-01-21 00:45] VITALS: PULSE 81; RESP 16; O2SAT 2
[2023-01-21] MEDS: SODIUM CHLORIDE 0.9% 1,000 ML IV SCH ×4 (04:10→23:24)
[2023-01-21 06:13] LABS: Basophils # (auto) 0 10 ^3/uL (0-0.2); Basophils % (auto) 0.3 % (0.0-2.0); Eosinophils # (auto) 0 10 ^3/uL (0-0.8); Eosinophils % (auto) 0.1 % (0.0-7.0); Hematocrit 39.1 % (41.0-53.0); Hemoglobin 13.1 g/dL (13.5-17.5); Lymphocytes # (auto) 0.7 10 ^3/uL (0.4-5.4); Lymphocytes % (auto) 20.2 % (10.0-50.0); Mean Corpuscular Hemoglobin 31.3 pg (28.0-32.0); Mean Corpuscular Hgb Conc. 33.6 g/dL (32.0-36.0); Mean Corpuscular Volume 93.1 fL (80.0-100.0); Monocytes # (auto) 0.1 10 ^3/uL (0-1.3); Monocytes % (auto) 3.8 % (0.0-12.0); Neutrophils # (auto) 2.7 10 ^3/uL (1.6-8.6); Neutrophils % (auto) 75.6 % (37.0-80.0); Nucleated Red Blood Cells % 0.3 %; Red Cell Distribution Width 16.7 % (11.8-14.3); White Blood Cell 3.6 10^3/uL (4.4-10.8)
[2023-01-21 06:43] LABS: Alanine Aminotransferase 21 U/L (7-40); Albumin 2.8 g/dL (3.2-4.8); Alkaline Phosphatase 104 U/L (46-116); Anion Gap 6.5 (5-15); Aspartate Aminotransferase 24 U/L (13-40); BUN/Creatinine Ratio 19.1 (10.0-20.0); Blood Urea Nitrogen 13 mg/dL (9-23); Carbon Dioxide 28.5 mmol/L (20-30); Chloride 95 mmol/L (98-107); Glucose 98 mg/dL (74-106); Potassium 3.8 mmol/L (3.5-5.1); Sodium 130 mmol/L (136-145)
[2023-01-21 06:44] LABS: Bilirubin, Total 0.7 mg/dL (0.2-1.0); Total Protein 4.9 g/dL (5.7-8.2)
[2023-01-21 07:45] VITALS: PULSE 81; RESP 16; O2SAT 96
[2023-01-21] MEDS: ONDANSETRON HCL 4 MG/2 ML VIAL IV PRN ×2 (08:36→20:20)
[2023-01-21] MEDS: MORPHINE SULFATE INJ 2 MG/ml SYRG IV PRN ×3 (08:37→20:29)
[2023-01-21] MEDS: cefTRIAXone 1GM/50ML D5W 50 ML IV SCH (09:46)
[2023-01-21] MEDS: PANTOPRAZOLE 40 MG/10 ML VIAL INJ IV SCH (10:22)
[2023-01-21] MEDS: methylPREDNISolone SOD SUCC 40 MG/ML VL IV SCH ×2 (10:24→21:23)
[2023-01-21] MEDS ORDERED: GASTROGRAFIN 120 ML SOL ONE (14:58)
[2023-01-21 17:56] VITALS: TEMP 98
[2023-01-21 19:45] VITALS: PULSE 68; RESP 18; O2SAT 98
[2023-01-21 20:00] VITALS: PULSE 69; TEMP 36.7
[2023-01-22] MEDS: ONDANSETRON HCL 4 MG/2 ML VIAL IV PRN ×3 (02:00→12:58)
[2023-01-22] MEDS: MORPHINE SULFATE INJ 2 MG/ml SYRG IV PRN ×4 (02:01→17:05)
[2023-01-22] MEDS: SODIUM CHLORIDE 0.9% 1,000 ML IV SCH ×3 (06:50→20:38)
[2023-01-22 08:00] VITALS: BP 101/70; PULSE 70; PULSE 74; RESP 15; TEMP 97.6; O2SAT 98
[2023-01-22] MEDS: PANTOPRAZOLE 40 MG/10 ML VIAL INJ IV SCH (08:21)
[2023-01-22] MEDS: methylPREDNISolone SOD SUCC 40 MG/ML VL IV SCH ×2 (08:21→21:11)
[2023-01-22] MEDS: cefTRIAXone 1GM/50ML D5W 50 ML IV SCH (08:21)
[2023-01-22 12:00] VITALS: BP 101/63; PULSE 67; RESP 20; TEMP 97.2; O2SAT 96
[2023-01-22 16:00] VITALS: BP 103/62; PULSE 68; RESP 21; TEMP 97.2; O2SAT 98
[2023-01-22 20:00] VITALS: PULSE 66; PULSE 70; RESP 15; O2SAT 98
[2023-01-22 22:00] VITALS: BP 108/73; PULSE 72; RESP 18; TEMP 97.6; O2SAT 94
[2023-01-23] MEDS: SODIUM CHLORIDE 0.9% 1,000 ML IV SCH ×2 (03:06→08:29)
[2023-01-23 05:00] VITALS: BP 92/58; PULSE 58; RESP 18; TEMP 97.7; O2SAT 96
[2023-01-23 08:00] VITALS: PULSE 65
[2023-01-23] MEDS: PANTOPRAZOLE 40 MG/10 ML VIAL INJ IV SCH (08:27)
[2023-01-23] MEDS: methylPREDNISolone SOD SUCC 40 MG/ML VL IV SCH (08:27)
[2023-01-23] MEDS: cefTRIAXone 1GM/50ML D5W 50 ML IV SCH (08:27)
[2023-01-23 09:05] VITALS: BP 98/62; PULSE 71; RESP 16; TEMP 97.7; O2SAT 93
[2023-01-23 14:00] VITALS: BP 103/72; PULSE 59; RESP 16; TEMP 97.7; O2SAT 98
[2023-01-23 14:03] VITALS: BP 98/62; PULSE 67; RESP 20; TEMP 36.5; O2SAT 98
[2023-01-23] MEDS ORDERED: AMPI500C9 PO (14:54)
== END 2023-01-23 15:30 | disposition home or self-care (01) | DRG 386 ==
LOC: ER 12:08 → TELE 21:18 → TELE-EAST 01-21 17:40
PROVIDERS: ADMIT Nurse Practitioner Family; ATTEND Internal Medicine
DX: K50.90 Crohn's disease, unspecified, without complications (principal); K56.609 Unspecified intestinal obstruction, unspecified as to partial versus complete obstruction; K80.20 Calculus of gallbladder without cholecystitis without obstruction; K76.0 Fatty (change of) liver, not elsewhere classified; N30.80 Other cystitis without hematuria; K21.9 Gastro-esophageal reflux disease without esophagitis; Z79.52 Long term (current) use of systemic steroids; Z80.0 Family history of malignant neoplasm of digestive organs; Z80.8 Family history of malignant neoplasm of other organs or systems; Z82.0 Family history of epilepsy and other diseases of the nervous system; Z83.3 Family history of diabetes mellitus
CPT/HCPCS: 36415; 71045; 74018; 74176; 74250; 80053; 81001; 83605; 83690; 85025; 87081; 87086; C9113; G0378; J0696; J2405; J2543

== ENCOUNTER → 2023-12-09 | Emergency (ER) | payer BC ==
[~2023-12-09] VITALS: Ht 185.4 cm; Wt 95.0 kg
[~2023-12-09] MED LIST changes: +AMPI500C9 PO; -CIPR500T4 PO; -METH4PAK PO
[2023-12-09 09:03] VITALS: TEMP 97.2
[2023-12-09 09:08] VITALS: PULSE 78; RESP 28; O2SAT 100
[2023-12-09 09:10] LABS: Hemoglobin 11.4 g/dL (13.5-17.5)
[2023-12-09 09:12] LABS: Hematocrit 32.1 % (41.0-53.0); Mean Corpuscular Hemoglobin 35.1 pg (28.0-32.0); Mean Corpuscular Hgb Conc. 35.6 g/dL (32.0-36.0); Mean Corpuscular Volume 98.4 fL (80.0-100.0); Red Blood Cells 3.26 10^6/uL (4.5-5.90); Red Cell Distribution Width 29.3 % (11.8-14.3); White Blood Cell 13.8 10^3/uL (4.4-10.8)
[2023-12-09 09:14] LABS: Basophils % (manual) 0 (0.0-2.0); Blast Cells 0; Eosinophils % (manual) 0 (0-7); Metamyelocytes % 0; Myelocytes % 0; Reactive Lymphocytes 0
[2023-12-09 09:34] LABS: Alkaline Phosphatase 780 U/L (46-116); Chloride 103 mmol/L (98-107); Sodium 130 mmol/L (136-145)
[2023-12-09 09:42] LABS: Anisocytosis Slight; Band Neutrophils % (manual) 3; Hypochromia Slight; Lymphocytes % (manual) 2 (10.0-50.0); Monocytes % (manual) 3 (0-12); Platelet Estimate Decreased; Promyelocytes % 1; Target Cell FEW
[2023-12-09 09:44] LABS: Alanine Aminotransferase 130 U/L (7-40); Albumin 2.5 g/dL (3.2-4.8); Anion Gap 17.00001 (5-15); Aspartate Aminotransferase 116 U/L (13-40); BUN/Creatinine Ratio 21.3 (10.0-20.0); Calcium 7.7 mg/dL (8.5-10.1); Glucose 184 mg/dL (74-106); Total Protein 4.7 g/dL (5.7-8.2)
[2023-12-09 09:45] LABS: Bilirubin, Total 39.9 mg/dL (0.2-1.0)
[2023-12-09 09:51] LABS: Potassium 5.7 mmol/L (3.5-5.1)
[2023-12-09 09:52] LABS: Blood Urea Nitrogen 140 mg/dL (9-23); Carbon Dioxide < 10 mmol/L (20-30)
[2023-12-09] MEDS: SODIUM CHLORIDE 0.9% 1,000 ML IV ONE (09:57)
[2023-12-09 10:00] VITALS: O2SAT 100
[2023-12-09 10:08] LABS: INR 1.91 (0.9-1.15); Partial Thromboplastin Time 51.9 SEC (24.5-34.5); Prothrombin Time 19.3 sec (9.3-11.8)
[2023-12-09 10:56] LABS: Magnesium 2.6 mg/dL (1.6-2.6)
[2023-12-09] MEDS: cefTRIAXone 1GM/50ML D5W 50 ML IV ONE (11:18)
[2023-12-09 11:34] LABS: Base Excess -21.5 mmol/L (-2.0-2.0)
[2023-12-09 12:30] LABS: Lactic Acid w/Reflex 6.4 mmol/L (0.4-2.0)
[2023-12-09 13:43] VITALS: BP 125/57; PULSE 82; RESP 28
[2023-12-09] MEDS: MORPHINE SULFATE INJ 2 MG/ml SYRG IV ONE (13:43)
[2023-12-09] MEDS: ONDANSETRON HCL 4 MG/2 ML VIAL IV ONE (13:44)
== END | disposition home or self-care (01) ==
LOC: EDUNIT# 08:27 → ER 08:28 → EDBD 08:28
DX: K72.90 Hepatic failure, unspecified without coma (principal); C78.4 Secondary malignant neoplasm of small intestine; N19 Unspecified kidney failure; J96.90 Respiratory failure, unspecified, unspecified whether with hypoxia or hypercapnia; E43 Unspecified severe protein-calorie malnutrition; R73.9 Hyperglycemia, unspecified; E87.20 Acidosis, unspecified; K21.9 Gastro-esophageal reflux disease without esophagitis; F12.90 Cannabis use, unspecified, uncomplicated
CPT/HCPCS: 36415; 36600; 71045; 74176; 80053; 82805; 83605; 83690; 83735; 85007; 85027; 85610; 85730; 96361; 96365; 96375; 99285; J0696; J2270; J2405; J7030; 93005